=== PATIENT | female | born 1975 | race Caucasian/White ===

== ENCOUNTER 2018-03-15 11:13 | Emergency (ER) | payer SELFPAY ==
[2018-03-15] MEDS ORDERED: PREDNISONE 20 MG TABLET PO ONE (11:52)
[2018-03-15] MEDS ORDERED: ALBUTEROL SULFATE 0.083% NEB 2.5 MG/3 ML AMPUL NEB ONE (11:52)
[2018-03-15 12:23] LABS: ABSOLUTE EOSINOPHILS # (AUTO) 0.2 10^3/uL (0.0-0.6); ABSOLUTE MONOCYTES (AUTO) 0.7 10^3/uL (0.1-1.4); BASOPHILS % (AUTO) 0.9 % (0-2); EOSINOPHILS % (AUTO) 4.4 % (0-6); HEMATOCRIT 38.6 % (36.0-47.0); HEMOGLOBIN 13.3 g/dL (12.0-15.5); LYMPHOCYTES % (AUTO) 39.9 % (13-45); MEAN CORPUSCULAR HEMOGLOBIN 30.1 pg (27.0-33.4); MEAN CORPUSCULAR HGB CONC 34.5 g/dL (32.0-36.0); MEAN CORPUSCULAR VOLUME 87 fl (80-97); PLATELET COUNT 236 10^3/uL (150-450); RED BLOOD COUNT 4.43 10^6/uL (3.72-5.28); RED CELL DISTRIBUTION WIDTH 13.7 % (11.5-14.0); SEGMENTED NEUTROPHILS % (AUTO) 39.8 % (42-78); TOTAL CELLS COUNTED % (AUTO) 100 %; WHITE BLOOD COUNT 4.9 10^3/uL (4.0-10.5)
--- NOTE | 2018-03-15 12:28 | ER Document Report ---
ED Medical Screen (RME) - General Chief Complaint: Chest Pain Stated Complaint: CHEST PAIN Time Seen by Provider: 03/15/18 11:46 TRAVEL OUTSIDE OF THE [place] IN LAST 30 DAYS: No - HPI Onset: Other - 42-year-old female with a history of asthma in the past who presents for evaluation of shortness of breath for the last 3 days which started while they were in her house. Notes that she does not have her inhalers or any other medications has continued to smoke. Is having tightness and chest pain associated with this. Nothing is seem to make any better, time seems to be making it worse as well as exertion. - Related Data Allergies/Adverse Reactions: No Known Allergies Allergy (Verified 12/08/14 10:24) Past Medical History - Social History Chew tobacco use (# tins/day): No Frequency of alcohol use: Occasional Drug Abuse: None Pulmonary Medical History: Reports: Hx Asthma, Hx Bronchitis Renal/ Medical History: Denies: Hx Peritoneal Dialysis Psychiatric Medical History: Denies: Hx Depression Traumatic Medical History: Reports: Hx Fractures Past Surgical History: Reports: Hx Appendectomy, Hx Section, Hx Oral Surgery, Hx Orthopedic Surgery - Immunizations Hx Diphtheria, Pertussis, Tetanus Vaccination: Yes Physical Exam - Vital signs Vitals: Temp Pulse Resp BP Pulse Ox 98.2 F 81 18 140/76 H 94 03/15/18 11:26 03/15/18 11:26 03/15/18 11:26 03/15/18 11:26 03/15/18 11:26 Course - Re-evaluation Re-evalutation: 03/15/18 12:28 We will initiate treatment with albuterol as well as steroids through triage as patient is markedly wheezy in all lung bean. We will initiate also workup for possible chest pain. We will plan for patient to undergo further investigation, I have performed a rapid medical examination and will defer further disposition determination to emergency provider. - Vital Signs Vital signs: Temp Pulse Resp BP Pulse Ox 98.2 F 81 18 140/76 H 94 03/15/18 11:26 03/15/18 11:26 03/15/18 11:26 03/15/18 11:26 03/15/18 11:26 - Laboratory Result Diagrams: 03/15/18 11:58 03/15/18 11:58 Laboratory results interpreted by me: 03/15/18 11:58 Seg Neutrophils % 39.8 L Monocytes % 15.0 H
[2018-03-15 12:49] LABS: ALANINE AMINOTRANSFERASE 27 U/L (9-52); ALBUMIN 3.8 g/dL (3.5-5.0); ALKALINE PHOSPHATASE 59 U/L (38-126); ANION GAP 7 (5-19); ASPARTATE AMINO TRANSFERASE 28 U/L (14-36); BILIRUBIN,DIRECT 0.4 mg/dL (0.0-0.4); BILIRUBIN,TOTAL 0.7 mg/dL (0.2-1.3); BLOOD UREA NITROGEN 9 mg/dL (7-20); CARBON DIOXIDE 29 mmol/L (22-30); CHLORIDE 103 mmol/L (98-107); CREATINE KINASE 150 U/L (30-135); GLUCOSE 193 mg/dL (75-110); POTASSIUM 3.9 mmol/L (3.6-5.0); SODIUM 138.5 mmol/L (137-145); TOTAL PROTEIN 6.7 g/dL (6.3-8.2)
[2018-03-15 12:55] LABS: CREATINE KINASE MB 0.55 ng/mL (<4.55)
[2018-03-15 13:01] LABS: TROPONIN I < 0.012 ng/mL
[2018-03-15] MEDS ORDERED: IPRATROPIUM/ALBUTEROL 0.5-2.5 MG/3 ML AMPUL NEB ONE (13:30)
--- NOTE | 2018-03-15 14:29 | RADIOLOGY REPORT (SQ) ---
EXAM DESCRIPTION: CHEST 2 VIEWS COMPLETED DATE/TIME: 03/15/2018 2:21 pm REASON FOR STUDY: cough COMPARISON: 12/11/2014. EXAM PARAMETERS: NUMBER OF VIEWS: two views TECHNIQUE: Digital Frontal and Lateral radiographic views of the chest acquired. RADIATION DOSE: NA LIMITATIONS: none FINDINGS: LUNGS AND PLEURA: No opacities, masses or pneumothorax. No pleural effusion. MEDIASTINUM AND HILAR STRUCTURES: No masses or contour abnormalities. HEART AND VASCULAR STRUCTURES: Heart normal size. No evidence for failure. BONES: No acute findings. HARDWARE: None in the chest. OTHER: No other significant finding. IMPRESSION: NO ACUTE RADIOGRAPHIC FINDING IN THE CHEST. TECHNICAL DOCUMENTATION: JOB ID: [id number] [employer] [place]- All Rights Reserved Reading location - IP/workstation name: [email or web address]
--- NOTE | 2018-03-15 16:20 | ER Document Report ---
ED Respiratory Problem - General Chief Complaint: Chest Pain Stated Complaint: CHEST PAIN Time Seen by Provider: 03/15/18 11:46 Mode of Arrival: Ambulatory Information source: Patient Notes: Patient is a 42-year-old female comes emergency room complaining of upper respiratory type issues with expiratory wheezing with severe hacking cough and little chest pain from the cough. She states that his center and it moves across both sides of her chest. She states the cough is become more progressive as the days go by. She started with this approximately 1 week ago. There is a pertinent family history for cardiac mother and father mother had a stroke in her 30s and dad had 2 MIs in his 50s. TRAVEL OUTSIDE OF THE [place] IN LAST 30 DAYS: No - HPI Patient complains to provider of: Cough, Hurts to breath, Short of breath Onset: Last week Duration: Continuous, Worse/persistent Quality of pain: Sharp, Stabbing, Throbbing Severity: Moderate Pain Level: 3 Context: denies: Recent long distance trvl, Recent surgery Short of Breath: Moderate Chest pain/discomfort: Constant, Pain, Tightness, Worse with deep breaths Cough: Nonproductive Sputum amount: None Associated symptoms: Chest pain/discomfort, Congestion, Difficulty breathing, Hurts to breathe, Wheezing. denies: Fever Similar symptoms previously: No Recently seen / treated by doctor: No - Related Data Allergies/Adverse Reactions: No Known Allergies Allergy (Verified 12/08/14 10:24) Past Medical History - General Information source: Patient - Social History Smoking Status: Current Every Day Smoker Cigarette use (# per day): Yes - half pack/day Chew tobacco use (# tins/day): No Frequency of alcohol use: Occasional Drug Abuse: None Lives with: Family Family History: None, CAD, CVA, Hypertension Patient has suicidal ideation: No Patient has homicidal ideation: No Pulmonary Medical History: Reports: Hx Asthma, Hx Bronchitis Renal/ Medical History: Denies: Hx Peritoneal Dialysis Psychiatric Medical History: Denies: Hx Depression Traumatic Medical History: Reports: Hx Fractures Past Surgical History: Reports: Hx Appendectomy, Hx Section, Hx Oral Surgery, Hx Orthopedic Surgery - Immunizations Hx Diphtheria, Pertussis, Tetanus Vaccination: Yes Review of Systems - Review of Systems Constitutional: No symptoms reported EENT: Nose congestion Cardiovascular: No symptoms reported Respiratory: See HPI, Cough, Hurts to breathe, Short of breath, Wheezing. denies: Sputum Gastrointestinal: No symptoms reported Genitourinary: No symptoms reported Female Genitourinary: No symptoms reported Musculoskeletal: No symptoms reported Skin: No symptoms reported Hematologic/Lymphatic: No symptoms reported Neurological/Psychological: No symptoms reported -: Yes All other systems reviewed and negative Physical Exam - Vital signs Vitals: Temp Pulse Resp BP Pulse Ox 98.2 F 81 18 140/76 H 94 03/15/18 11:26 03/15/18 11:26 03/15/18 11:26 03/15/18 11:26 03/15/18 11:26 Interpretation: Hypertensive - Notes Notes: Well nurished well developed female in no apparent distress but in moderate discomfort with some difficulty breathing with wheezing noted. - General General appearance: Alert - HEENT Head: Normocephalic, Atraumatic Eyes: Normal Ears: Normal External canal: Normal. No: Blood in canal, Cerumen impaction, Erythema Tympanic membrane: Bulging, Retracted. No: Hemotympanum, Injected, Loss of landmarks, Purulent effusion Nasal: Swelling, Clear rhinorrhea Mouth/Lips: Normal. No: Angioedema Mucous membranes: Normal, Moist Pharynx: Post nasal drainage. No: Blood in hypopharynx, Erythema, Exudate, Tonsillar hypertrophy, Potential airway comprom. Neck: Normal, Supple. No: Anterior cervical chain, Posterior cervical chain, Lymphadenopathy, Meningismus, Shotty nodes, Subcutaneous emphysema - Respiratory Respiratory status: No respiratory distress Chest status: Tender, Pain on movement, Pain with cough, Pain with deep breathing. No: Ecchymosis, No pleuritic chest pain, Accessory muscle use, Prolonged expirations, Splinting Breath sounds: Decreased air movement, Nonproductive cough, Wheezing. No: Productive cough, Rales, Rhonchi, Stridor Chest palpation: Tender, Other - Tenderness across the anterior chest to palpation - Cardiovascular Rhythm: Regular Heart sounds: Normal auscultation Murmur: No - Abdominal Inspection: Normal Distension: No distension Bowel sounds: Normal Tenderness: Nontender Organomegaly: No organomegaly Adult front & back diagram: 1 - area of tenderness - Back Back: Normal, Nontender. No: Tender, CVA tenderness, Vertebra tenderness - Extremities General upper extremity: Normal inspection, Nontender, Tender, Normal color, Normal ROM, Normal strength, Normal temperature, Other - Increased tenderness to anterior chest with upper cest pain noted with the use of resistance forces with arms. No: Edema General lower extremity: Normal inspection, Nontender, Normal ROM, Normal strength. No: Tender, Edema - Neurological Neuro grossly intact: Yes Cognition: Normal Orientation: AAOx4 [place] Coma Scale Eye Opening: Spontaneous [place] Coma Scale Verbal: Oriented [place] Coma Scale Motor: Obeys Commands [place] Coma Scale Total: 15 Speech: Normal - Skin Skin Temperature: Warm Skin Moisture: Dry Skin Color: Normal, [place] Course - Re-evaluation Re-evalutation: 03/26/18 10:17 Work up negative for any cardiac involvement. Will treat for asthmatic bronchitis. Patient better with nebtreatment. - Vital Signs Vital signs: Temp Pulse Resp BP Pulse Ox 97.5 F 81 18 152/89 H 95 03/15/18 16:35 03/15/18 11:26 03/15/18 11:26 03/15/18 16:35 03/15/18 16:35 - Laboratory Result Diagrams: 03/15/18 11:58 03/15/18 11:58 Laboratory results interpreted by me: 03/15/18 03/15/18 11:58 11:58 Seg Neutrophils % 39.8 L Monocytes % 15.0 H Glucose 193 H Creatine Kinase 150 H Discharge - Discharge Clinical Impression: Asthmatic bronchitis Qualifiers: Asthma severity: moderate Asthma persistence: persistent Asthma complication type: with acute exacerbation Qualified Code(s): J45.41 - Moderate persistent asthma with (acute) exacerbation Disposition: HOME, SELF-CARE Instructions: Bronchitis With Bronchospasm (Wheezing) ([facility]), Chest Wall Pain ( [facility]), Family Physicians / Practices Additional Instructions: Home and rest. Medications prescribed. Decrease smoking as much as possible. Give you something that will hopefully calm the cough down which will decrease the amount of pain you have been in your anterior chest wall. Highly suggest you follow-up with your primary care over the next few days for further intervention if needed. Highly suggest that you talk to him about having a nebulizer machine at home. In the meantime we will put you on an inhaler. Should you have any increase in symptomatology if he spike a fever please return to ER for recheck. Prescriptions: Acetaminophen with Codeine [Tylenol #3 Tablet] 1 each PO Q4HP PRN #12 tablet PRN Reason: Albuterol Sulfate [Proair HFA Inhalation Aerosol 8.5 gm MDI] 2 puff IH Q4H PRN # 1 mdi PRN Reason: Prednisone [Sterapred Ds] 10 mg PO ASDIR PRN 6 Days #1 tab.ds.pk PRN Reason: Forms: Elevated Blood Pressure, Smoking Cessation Education, Return to Work
[2018-03-15 16:49] VITALS: BP 152/89
--- NOTE | 2018-03-15 19:54 | EKG REPORT ---
SEVERITY:- ABNORMAL ECG - SINUS RHYTHM PROBABLE LEFT ATRIAL ABNORMALITY LOW VOLTAGE WITH RIGHT AXIS DEVIATION CONSIDER ANTEROSEPTAL INFARCT : Confirmed by: Zunilda Mccloud MD 15-Mar-2018 19:53:03
== END 2018-03-15 16:45 | disposition home or self-care (01) ==
LOC: ER 11:13
DX: J45.41 Moderate persistent asthma with (acute) exacerbation (principal); R05 Cough; R07.89 Other chest pain; R07.1 Chest pain on breathing; R06.02 Shortness of breath; J34.89 Other specified disorders of nose and nasal sinuses; R09.82 Postnasal drip; F17.210 Nicotine dependence, cigarettes, uncomplicated; Z82.49 Family history of ischemic heart disease and other diseases of the circulatory system
CPT/HCPCS: 93005; 94640 ×2; 99285; 36415; 82553; 82550; 85025; 80053; 84484; 71046; 93010; J7512; J7620

== ENCOUNTER 2018-06-22 11:00 | Emergency (ER) | payer SELFPAY ==
[2018-06-22] MEDS ORDERED: NORMAL SALINE 500 ML IV ONE (12:21)
[2018-06-22] MEDS ORDERED: KETOROLAC TROMETHAMINE INJ/PF 30 MG/1 ML SDV IV ONE (12:21)
--- NOTE | 2018-06-22 12:22 | ER Document Report ---
ED Medical Screen (RME) - General Chief Complaint: Abdominal Pain Stated Complaint: ABDOMINAL PAIN Time Seen by Provider: 06/22/18 12:17 Notes: 42-year-old female to emergency department chief complaint of diffuse abdominal pain. Pain radiates down into her right leg as well. Does not have an appendix. Intermittent fevers. Intermittent nausea. I have greeted and performed a rapid initial assessment of this patient. A comprehensive ED assessment and evaluation of the patient, analysis of test results and completion of the medical decision making process will be conducted by additional ED providers. TRAVEL OUTSIDE OF THE [place] IN LAST 30 DAYS: No - Related Data Allergies/Adverse Reactions: No Known Allergies Allergy (Verified 06/22/18 11:03) Past Medical History - Social History Frequency of alcohol use: Rare Drug Abuse: None Pulmonary Medical History: Reports: Hx Asthma, Hx Bronchitis Renal/ Medical History: Denies: Hx Peritoneal Dialysis Psychiatric Medical History: Denies: Hx Depression Traumatic Medical History: Reports: Hx Fractures Past Surgical History: Reports: Hx Appendectomy, Hx Section, Hx Oral Surgery, Hx Orthopedic Surgery - Immunizations Hx Diphtheria, Pertussis, Tetanus Vaccination: Yes Physical Exam - Vital signs Vitals: Temp Pulse Resp BP Pulse Ox 98.7 F 106 H 18 121/84 98 06/22/18 11:28 06/22/18 11:28 06/22/18 11:28 06/22/18 11:28 06/22/18 11:28 - Abdominal Inspection: Normal Distension: No distension Bowel sounds: Normal Tenderness: Tender - Diffuse abdominal tenderness Course - Vital Signs Vital signs: Temp Pulse Resp BP Pulse Ox 98.7 F 106 H 18 121/84 98 06/22/18 11:28 06/22/18 11:28 06/22/18 11:28 06/22/18 11:28 06/22/18 11:28
[2018-06-22 13:24] LABS: APPEARANCE,URINE CLOUDY; BILIRUBIN,URINE SMALL (NEGATIVE); COLOR,URINE AMBER; GLUCOSE, URINE NEGATIVE (NEGATIVE); KETONES,URINE 20 mg/dL (NEGATIVE); LEUKOCYTE ESTERASE,URINE NEGATIVE (NEGATIVE); NITRITE,URINE NEGATIVE (NEGATIVE); PROTEIN,URINE >=500 mg/dL (NEGATIVE)
[2018-06-22 13:26] LABS: ABSOLUTE BASOPHILS # (AUTO) 0.1 10^3/uL (0.0-0.2); ABSOLUTE EOSINOPHILS # (AUTO) 0.1 10^3/uL (0.0-0.6); ABSOLUTE LYMPHOCYTES (AUTO) 2.3 10^3/uL (0.5-4.7); ABSOLUTE MONOCYTES (AUTO) 1.4 10^3/uL (0.1-1.4); ABSOLUTE NEUT (AUTO) 8.5 10^3/uL (1.7-8.2); BASOPHILS % (AUTO) 0.6 % (0-2); EOSINOPHILS % (AUTO) 0.6 % (0-6); HEMATOCRIT 45.8 % (36.0-47.0); HEMOGLOBIN 15.7 g/dL (12.0-15.5); LYMPHOCYTES % (AUTO) 18.6 % (13-45); MEAN CORPUSCULAR HEMOGLOBIN 30.3 pg (27.0-33.4); MEAN CORPUSCULAR HGB CONC 34.2 g/dL (32.0-36.0); MEAN CORPUSCULAR VOLUME 89 fl (80-97); MONOCYTES % (AUTO) 11.6 % (3-13); PLATELET COUNT 303 10^3/uL (150-450); RED BLOOD COUNT 5.18 10^6/uL (3.72-5.28); RED CELL DISTRIBUTION WIDTH 13.3 % (11.5-14.0); SEGMENTED NEUTROPHILS % (AUTO) 68.6 % (42-78); TOTAL CELLS COUNTED % (AUTO) 100 %; WHITE BLOOD COUNT 12.3 10^3/uL (4.0-10.5)
[2018-06-22] MEDS ORDERED: MORPHINE SULFATE 10 MG/ML INJ IV ONE (14:29)
[2018-06-22] MEDS ORDERED: RINGERS SOLUTION,LACTATED 1,000 ML IV ONE (14:29)
[2018-06-22] MEDS ORDERED: ONDANSETRON HCL INJ/PF 4 MG/2 ML SDV IV ONE (14:29)
--- NOTE | 2018-06-22 14:30 | ER Document Report ---
ED General - General Chief Complaint: Abdominal Pain Stated Complaint: ABDOMINAL PAIN Time Seen by Provider: 06/22/18 12:17 Notes: Patient is a 42-year-old female that presents to the emergency department for chief complaint of abdominal pain. Patient states the pain started Wednesday, and has been persistent and seemingly worsening over time. The pain is located initially in her right leg, and seem to migrate to the right lower quadrant, and then across most of her abdomen, and they currently rate the pain as a 7 out of 10, and described as aching, and constant. They have had associated nausea, vomiting and watery diarrhea. Denies noting any fevers, chills, night sweats, chest pain, shortness of breath or difficulty breathing. She is never had pain like this before. Past Medical History: Diabetes mellitus Past Surgical History: Appendectomy, Social History: Admits to smoking cigarettes, and occasional alcohol use, denies drug use Family History: Reviewed and noncontributory for presenting illness Allergies: Reviewed, see documented allergy list. REVIEW OF SYSTEMS: Other than noted above, the 12 point review of systems was reviewed with the patient and were negative, all pertinent findings are included in the HPI. PHYSICAL EXAMINATION: Vital signs reviewed, nursing noted reviewed. GENERAL: Well-appearing, well-nourished and appears uncomfortable HEAD: Atraumatic, normocephalic. EYES: Eyes appear normal, extraocular movements intact, sclera anicteric, conjunctiva are normal. ENT: nares patent, oropharynx clear without exudates. Moist mucous membranes. NECK: Normal range of motion, supple without lymphadenopathy LUNGS: Breath sounds clear to auscultation bilaterally and equal. No wheezes rales or rhonchi. HEART: Regular rate and rhythm without murmurs ABDOMEN: Soft, normal bowel sounds, tenderness with palpation diffusely, but worse in the right lower quadrant, No rebound, guarding, or rigidity. EXTREMITIES: Nontender, good range of motion, no pitting or edema. NEUROLOGICAL: No focal neurological deficits. Moves all extremities spontaneously Motor and sensory grossly intact on exam. PSYCH: Normal mood, normal affect. SKIN: Warm, Dry, normal turgor, no rashes or lesions noted on exposed skin TRAVEL OUTSIDE OF THE [place] IN LAST 30 DAYS: No - Related Data Allergies/Adverse Reactions: No Known Allergies Allergy (Verified 06/22/18 11:03) Past Medical History - Social History Smoking Status: Current Every Day Smoker Frequency of alcohol use: Rare Drug Abuse: None Family History: None, CAD, CVA, Hypertension Patient has suicidal ideation: No Patient has homicidal ideation: No Pulmonary Medical History: Reports: Hx Asthma, Hx Bronchitis Renal/ Medical History: Denies: Hx Peritoneal Dialysis Psychiatric Medical History: Denies: Hx Depression Traumatic Medical History: Reports: Hx Fractures Past Surgical History: Reports: Hx Appendectomy, Hx Section, Hx Oral Surgery, Hx Orthopedic Surgery - Immunizations Hx Diphtheria, Pertussis, Tetanus Vaccination: Yes Physical Exam - Vital signs Vitals: Temp Pulse Resp BP Pulse Ox 98.7 F 106 H 18 121/84 98 06/22/18 11:28 06/22/18 11:28 06/22/18 11:28 06/22/18 11:28 06/22/18 11:28 Course - Re-evaluation Re-evalutation: Patient seen and examined vital signs reviewed. Laboratory data and imaging were ordered as appropriate for the patient's presenting symptoms and complaint, with consideration of any critical or life threatening conditions that may be associated with their obtained history and exam as noted above. Patient was treated with IV pain medication and fluids, as well as Zofran for nausea Results were reviewed when available and demonstrated mild leukocytosis, CT imaging demonstrated a 11 x 10 x 11 cm right ovarian mass or least concern for right ovarian cystic mass, which is new for this patient, no history of ovarian lesions or tumors in the past. I did discuss this with gynecology, at [facility], who did not believe that this is likely a cancerous lesion, most likely benign, but did recommend following up with a local motor scooter mechanic, who I did call Dr. Atkinson, he recommended getting tumor markers, these are added onto the patient's blood work. The patient was re-evaluated and was stable, pain was improved, will discharge the patient home with pain medication, I discussed with her these results, and that she needs to follow-up with the [employer], and could do so tomorrow, patient was agreeable to this plan of care. Evaluation was most consistent with large right ovarian cystic mass, abdominal pain Results were discussed with the patient at this point, after careful consideration I feel that that patient can be discharged from the emergency department, the patient was educated treatments and reasons to return to the emergency department based on their presumed diagnosis as noted above, they were advised to followup with a primary care physician in 2-3 days. Patient was agr eeable to plan of care. *Note is created using voice recognition software and may contain spelling, syntax or grammatical errors. Laboratory 06/22/18 06/22/18 06/22/18 13:00 13:00 13:00 WBC 12.3 H RBC 5.18 Hgb 15.7 H Hct 45.8 MCV 89 MCH 30.3 MCHC 34.2 RDW 13.3 Plt Count 303 Seg Neutrophils % 68.6 Lymphocytes % 18.6 Monocytes % 11.6 Eosinophils % 0.6 Basophils % 0.6 Absolute Neutrophils 8.5 H Absolute Lymphocytes 2.3 Absolute Monocytes 1.4 Absolute Eosinophils 0.1 Absolute Basophils 0.1 Sodium Cancelled Potassium Cancelled Chloride Cancelled Carbon Dioxide Cancelled Anion Gap Cancelled BUN Cancelled Creatinine Cancelled Est GFR ( Amer) Cancelled Est GFR (Non-Af Amer) Cancelled Glucose Cancelled Calcium Cancelled Total Bilirubin Cancelled Direct Bilirubin Cancelled Neonat Total Bilirubin Cancelled Neonat Direct Bilirubin Cancelled Neonat Indirect Bili Cancelled AST Cancelled ALT Cancelled Alkaline Phosphatase Cancelled Total Protein Cancelled Albumin Cancelled Lipase Cancelled Carcinoembryonic Ag Beta HCG, Quant Total Beta HCG Urine Color CHANDRAKANT Urine Appearance CLOUDY Urine pH 5.0 Ur Specific [place] 1.030 Urine Protein >=500 H Urine Glucose (UA) NEGATIVE Urine Ketones 20 H Urine Blood NEGATIVE Urine Nitrite NEGATIVE Urine Bilirubin SMALL H Urine Urobilinogen 4.0 H Ur Leukocyte Esterase NEGATIVE Urine WBC (Auto) 7 Urine RBC (Auto) 4 U Hyaline Cast (Auto) 10 Urine Bacteria (Auto) TRACE Squamous Epi Cells Auto 17 Urine Mucus (Auto) MANY Urine Ascorbic Acid NEGATIVE 06/22/18 06/22/18 06/22/18 14:10 14:10 14:10 WBC RBC Hgb Hct MCV MCH MCHC RDW Plt Count Seg Neutrophils % Lymphocytes % Monocytes % Eosinophils % Basophils % Absolute Neutrophils Absolute Lymphocytes Absolute Monocytes Absolute Eosinophils Absolute Basophils Sodium 135.1 L Potassium 3.9 Chloride 101 Carbon Dioxide 23 Anion Gap 11 BUN 16 Creatinine 0.94 Est GFR ( Amer) > 60 Est GFR (Non-Af Amer) > 60 Glucose 166 H Calcium 9.0 Total Bilirubin 1.1 Direct Bilirubin 0.3 Neonat Total Bilirubin Not Reportable Neonat Direct Bilirubin Not Reportable Neonat Indirect Bili Not Reportable AST 11 L ALT 17 Alkaline Phosphatase 75 Total Protein 7.2 Albumin 4.3 Lipase 28.3 Carcinoembryonic Ag 2.3 Beta HCG, Quant < 2.39 Total Beta HCG NEGATIVE Urine Color Urine Appearance Urine pH Ur Specific [place] Urine Protein Urine Glucose (UA) Urine Ketones Urine Blood Urine Nitrite Urine Bilirubin Urine Urobilinogen Ur Leukocyte Esterase Urine WBC (Auto) Urine RBC (Auto) U Hyaline Cast (Auto) Urine Bacteria (Auto) Squamous Epi Cells Auto Urine Mucus (Auto) Urine Ascorbic Acid Abdomen/Pelvis CT 06/22/18 00:00 IMPRESSION: 1. LARGE MULTILOCULATED CYSTIC MASS IN THE MIDLINE LOCATED SUPERIOR TO THE UTERUS. THIS MOST LIKELY REPRESENTS A LARGE OVARIAN LESION. 2. NO OTHER SIGNIFICANT OR ACUTE FINDING IN THE ABDOMEN OR PELVIS ON CT SCAN WITH IV CONTRAST. - Vital Signs Vital signs: Temp Pulse Resp BP Pulse Ox 98.6 F 85 18 116/71 100 06/22/18 18:23 06/22/18 18:23 06/22/18 18:23 06/22/18 18:23 06/22/18 18:23 - Laboratory Result Diagrams: 06/22/18 13:00 06/22/18 14:10 Laboratory results interpreted by me: 06/22/18 06/22/18 06/22/18 13:00 13:00 14:10 WBC 12.3 H Hgb 15.7 H Absolute Neutrophils 8.5 H Sodium 135.1 L Glucose 166 H AST 11 L Urine Protein >=500 H Urine Ketones 20 H Urine Bilirubin SMALL H Urine Urobilinogen 4.0 H Discharge - Discharge Clinical Impression: Ovarian mass, right Abdominal pain Qualifiers: Abdominal location: unspecified location Qualified Code(s): R10.9 - Unspecified abdominal pain Condition: Stable Disposition: HOME, SELF-CARE Additional Instructions: Your imaging today revealed a right ovarian mass, measuring 10 x 10 x 10 cm, please follow-up with gynecology, tomorrow, he can call for an appointment, the else of a walk-in clinic, number and address provided below, if you have further concerns, do not hesitate to return to the emergency department. Prescriptions: Ondansetron [Zofran Odt 4 mg Tablet] 1 tab PO Q8H PRN #15 tab.rapdis PRN Reason: For Nausea/Vomiting Oxycodone HCl/Acetaminophen [Percocet 5-325 mg Tablet] 1 tab PO Q8H PRN #15 tab PRN Reason: general pain Forms: Return to Work Referrals: ARABELLA ATKINSON MD [ACTIVE STAFF] - Follow up tomorrow [facility] [Provider Group] - Follow up tomorrow
[2018-06-22 14:54] LABS: ALANINE AMINOTRANSFERASE 17 U/L (9-52); ALBUMIN 4.3 g/dL (3.5-5.0); ALKALINE PHOSPHATASE 75 U/L (38-126); ANION GAP 11 (5-19); ASPARTATE AMINO TRANSFERASE 11 U/L (14-36); BILIRUBIN,DIRECT 0.3 mg/dL (0.0-0.4); BILIRUBIN,TOTAL 1.1 mg/dL (0.2-1.3); BLOOD UREA NITROGEN 16 mg/dL (7-20); CARBON DIOXIDE 23 mmol/L (22-30); CHLORIDE 101 mmol/L (98-107); GLUCOSE 166 mg/dL (75-110); LIPASE 28.3 U/L (23-300); POTASSIUM 3.9 mmol/L (3.6-5.0); SODIUM 135.1 mmol/L (137-145); TOTAL PROTEIN 7.2 g/dL (6.3-8.2)
--- NOTE | 2018-06-22 15:31 | RADIOLOGY REPORT (SQ) ---
EXAM DESCRIPTION: CT ABD/PELVIS WITH IV ORAL COMPLETED DATE/TIME: 06/22/2018 3:16 pm REASON FOR STUDY: abd pain COMPARISON: None. TECHNIQUE: CT scan of the abdomen and pelvis performed using helical scanning technique with dynamic intravenous contrast injection. No oral contrast. Images reviewed with lung, soft tissue, and bone windows. Reconstructed coronal and sagittal MPR images reviewed. Delayed images for evaluation of the urinary system also acquired. All images stored on PACS. All CT scanners at this facility use dose modulation, iterative reconstruction, and/or weight based d osing when appropriate to reduce radiation dose to as low as reasonably achievable (ALARA). [facility]: Dose Right [facility]: CareDose [facility]: Dose Right [facility]: Teradose 4D [facility]: Konnektid CONTRAST TYPE AND DOSE: contrast/concentration: Isovue 350.00 mg/ml; Total Contrast Delivered: 100.0 ml; Total Saline Delivered: 70.0 ml RENAL FUNCTION: BUN 16 creatinine 0.94. RADIATION DOSE: CT Rad equipment meets quality standard of care and radiation dose reduction techniq ues were employed. CTDIvol: 17.5 - 19.6 mGy. DLP: 2006 mGy-cm.. LIMITATIONS: None. FINDINGS: LOWER CHEST: No significant findings. No nodules or infiltrates. LIVER: Normal size. No masses. No dilated ducts. SPLEEN: Normal size. No focal lesions. PANCREAS: No masses. No significant calcifications. No adjacent inflammation or peripancreatic fluid collections. Pancreatic duct not dilated. GALLBLADDER: No identified stones by CT criteria. No inflammatory changes to suggest cholecystitis. ADRENAL GLANDS: No significant masses or asymmetry. RIGHT KIDNEY AND URETER: No solid masses. No significant calcifications. No hydronephrosis or hyd roureter. LEFT KIDNEY AND URETER: No solid masses. No significant calcifications. No hydronephrosis or hydr oureter. AORTA AND VESSELS: No aneurysm. No dissection. Renal arteries, SMA, celiac without stenosis. RETROPERITONEUM: No retroperitoneal adenopathy, hemorrhage or masses. BOWEL AND PERITONEAL CAVITY: No masses or inflammatory changes. No free fluid or peritoneal masses. APPENDIX: Surgically absent. PELVIS: Multiloculated cystic mass in the midline located superior to the uterus. Transverse measure ment 11 cm, AP measurement 10 cm, and craniocaudal measurement 11 cm. No free fluid. Normal bladder. ABDOMINAL WALL: No masses. No hernias. BONES: No significant or acute findings. Degenerative changes in the lower lumbar spine with pars de fects at L5. OTHER: No other significant finding. IMPRESSION: 1. LARGE MULTILOCULATED CYSTIC MASS IN THE MIDLINE LOCATED SUPERIOR TO THE UTERUS. THIS MOST LIKELY REPRESENTS A LARGE OVARIAN LESION. 2. NO OTHER SIGNIFICANT OR ACUTE FINDING IN THE ABDOMEN OR PELVIS ON CT SCAN WITH IV CONTRAST. TECHNICAL DOCUMENTATION: JOB ID: [id number] Quality ID # [id number]: Final reports with documentation of one or more dose reduction techniques (e.g., Au tomated exposure control, adjustment of the mA and/or kV according to patient size, use of iterative reconstruction technique) 2010 [employer]- All Rights Reserved Reading location - IP/workstation name: [email or web address]
[2018-06-22 18:25] VITALS: BP 116/71
== END 2018-06-22 18:25 | disposition home or self-care (01) ==
LOC: ER 11:00
DX: N83.9 Noninflammatory disorder of ovary, fallopian tube and broad ligament, unspecified (principal); R10.9 Unspecified abdominal pain; M79.604 Pain in right leg; R10.31 Right lower quadrant pain; R11.2 Nausea with vomiting, unspecified; R19.7 Diarrhea, unspecified; E11.9 Type 2 diabetes mellitus without complications; F17.210 Nicotine dependence, cigarettes, uncomplicated; J45.909 Unspecified asthma, uncomplicated
CPT/HCPCS: 99284; 96361; 96374; 96375; 36415; 87086; 82378; 84702; 83690; 85025; 80053; 81001; 74177; J1885; J2270; J2405; J7040; J7120